=== PATIENT | male | born 1940 | race Caucasian/White ===

== ENCOUNTER 2021-12-13 12:30 | Emergency (ER) | payer MEDICARE, SELFPAY ==
[2021-12-13 12:58] VITALS: BP 121/80; PULSE 80; RESP 14; TEMP 36.6; O2SAT 98
--- NOTE | 2021-12-13 14:01 | ED.WOUNDLAC ---
HPI - Wound/Laceration General Chief Complaint: Wound/Laceration Stated Complaint: fall/head lac Time Seen by Provider: 12/13/21 14:01 Source: patient Mode of arrival: ambulatory Limitations: no limitations History of Present Illness HPI narrative: Patient is a 81-year-old male with a history of hypertension, hyperlipidemia, coronary artery disease, history of NC with stent placement, presenting to the emergency department for evaluation scalp laceration. Patient reported that he was standing 4 feet on a ladder when he was pulling nails from a ceiling, and a nail came loose suddenly, causing him to fall backwards, scraping his head on the wall and ultimately landing on his left side. Patient denied any direct head strike. Patient states that he did not lose consciousness. He is not on any anticoagulation. He did not have any prodromal symptoms prior to the fall such as chest pain, lightheadedness, dizziness, palpitations. Patient denies any headache, vision changes, difficulty with speech, difficulty with ambulation. Denies any focal weakness or numbness. Denies nausea or vomiting. No mental status changes. Patient is not up-to-date on his tetanus. Patient states that injury occurred over 3 hours ago. He denies any neck pain. No extremity weakness or numbness. No lower back pain or hip pain. Denies extremity pain. Patient at bedside also states he is mentating normal, acting normally, appears normal to her. Related Data Allergies Allergy/AdvReac Type Severity Reaction Status Date / Time No Known Allergies Allergy Verified 12/13/21 13:59 Review of Systems Review of Systems: CONSTITUTIONAL: Denies fever, chills, or sweats. EYES: Denies visual changes, redness, or discharge. ENT: Denies rhinorrhea, congestion, sore throat, or otalgia. CARDIOVASCULAR: Denies chest pain, palpitations, or edema. RESPIRATORY: Denies cough or dyspnea. GASTROINTESTINAL: Denies abdominal pain, nausea, vomiting, or diarrhea. GENITOURINARY: Denies dysuria or hematuria. SKIN: Denies rash or itching. MUSCULOSKELETAL: Denies back pain, joint pain, or myalgia. NEUROLOGIC: Denies headache, numbness, or weakness. [facility] Past Medical History Medical History Abdominal fistula Social History Social History (Updated 12/13/21 @ 14:25 by Kelsi Azevedo MD) Smoking status: Never smoker Alcohol intake: current Alcohol use details: Rarely, maybe once monthly Substance use: never Living arrangements: with family Gender identity (if verbalized by the patient): Male Exam Narrative: GENERAL: Awake, alert, conversant HEAD: Normocephalic, patient has a 2 cm superficial linear laceration to the left posterior parietal occiput, no ecchymosis, nonboggy, nontender, not gaping, no active bleeding EYES: 2+ PERRLA and EOMI. no gaze palsy. ENT: Nares clear, no rhinorrhea or epistaxis. Mucous membranes moist. NECK: Supple. No cervical midline tenderness. CHEST: No respiratory distress, breathing even and non labored HEART: Regular rate, sinus rhythm ABDOMEN:Non distended, non tender EXTREMITIES: Normal range of motion. No edema. SKIN: Warm, dry, no rash. NEURO:No focal deficits. Alert and oriented x3. Finger to nose intact bilaterally. EOMs intact without nystagmus. No facial droop/asymmetry noted bilaterally. Grimace intact. Intact sensation in face. Hearing intact bilaterally. Shoulder shrug intact. Strength 5/5 bilateral upper extremities. Strength 5/5 bilateral lower extremities. Reflexes 2+ patellar. Heel to jackson intact bilaterally. Ambulatory with a narrow base, steady gait, no ataxia. Patient is able to complete heel-to-toe walk, tandem gait without difficulty. Course Vital Signs Vital signs: Vital Signs Temperature 36.6 C 12/13/21 12:58 Pulse Rate 80 12/13/21 12:58 Respiratory Rate 14 12/13/21 12:58 Blood Pressure 121/80 12/13/21 12:58 Pulse Oximetry 98 12/13/21
[2021-12-13] MEDS: TETANUS,DIPHTHERIA,AC PERTUSSIS ADULT (0.5 ML) BOOSTRIX IM (14:28)
== END 2021-12-13 14:29 | disposition home or self-care (01) ==
LOC: ANHED 14:30
PROVIDERS: Emergency Provider Emergency Medicine
DX: S01.01XA Laceration without foreign body of scalp, initial encounter (principal); Z23 Encounter for immunization; I25.2 Old myocardial infarction; I25.10 Atherosclerotic heart disease of native coronary artery without angina pectoris; E78.5 Hyperlipidemia, unspecified; I10 Essential (primary) hypertension; Z95.5 Presence of coronary angioplasty implant and graft; W11.XXXA Fall on and from ladder, initial encounter
CPT/HCPCS: 12001; 90471; 90715; 99282